=== PATIENT | male | born 1980 | race Caucasian/White ===

== ENCOUNTER 2016-11-12 05:51 | Emergency (ER) | payer OTHER ==
--- NOTE | 2016-11-12 19:02 | ER ---
ADMIT: 11/12/2016 RM/LOC: ER [facility] MR#: [id number] [facility] [id number] ANTOLIN STRONG [address] [place] [id number] Emergency Room Report SEX: M AGE: 36 : 1980 DATE: 11/12/2016 The patient is a 36-year-old male, who slipped going down his stairs outside, injuring his left ribs, but the child he was carrying is okay. Does admit to pleuritic pain. No significant shortness of breath or other injuries. Transported himself to the emergency department. Exam remarkable for nontoxic, afebrile, acutely uncomfortable male with left pleuritic localized pain. No evidence of contusion or midline tenderness. X-ray confirms no pneumothorax, nondisplaced left 6th through 9th rib fractures. Treated with Toradol 30, Dilaudid 1, Reglan 5 mg IM with improvement of pain. Rib Belt 12/24 hours. Naproxen 500 mg b.i.d. #60, hydrocodone 5/325 #[address]. Follow up [address]. Almendarez as needed. Work release today. Kaz Lake MD/ jeanmariel JOB #: [id number] CC: Kaz Lake MD, Attending Physician Nikita Almendarez MD, Family Physician Nikita Almendarez MD
== END 2016-11-12 06:51 | disposition home or self-care (01) ==
LOC: ER 05:51
DX: S22.42XA Multiple fractures of ribs, left side, initial encounter for closed fracture (principal); F17.210 Nicotine dependence, cigarettes, uncomplicated; I10 Essential (primary) hypertension; Z88.0 Allergy status to penicillin; Z90.49 Acquired absence of other specified parts of digestive tract; Z79.899 Other long term (current) drug therapy; Z98.890 Other specified postprocedural states; W10.9XXA Fall (on) (from) unspecified stairs and steps, initial encounter; Y92.009 Unspecified place in unspecified non-institutional (private) residence as the place of occurrence of the external cause